=== PATIENT | male | born 1975 | race Caucasian/White ===

== ENCOUNTER 2022-09-10 14:05 | Outpatient (NON) | payer OTHER, SELFPAY ==
[2022-09-10 15:55] LABS: Crystals Synovial Fluid None Seen (None Seen)
== END 2022-09-10 14:06 | disposition home or self-care (01) ==
LOC: ANHLAB 14:07
PROVIDERS: PCP Family Medicine Sports Medicine; Visit Provider Orthopaedic Surgery
DX: M25.461 Effusion, right knee (principal)
CPT/HCPCS: 87070; 87075; 87147; 87181; 87186; 87205; 89060

== ENCOUNTER 2022-09-14 09:09 | Inpatient (IN) | payer OTHER, SELFPAY ==
[2022-09-14] VITALS (31 sets, daily range): BP systolic 120–135; BP diastolic 58–83; PULSE 80–101; RESP 16–20; TEMP 36.6–37.9; O2SAT 96–100; BMI 25.9
--- NOTE | ~2022-09-14 | XR_ITS ---
EXAMINATION: XR knee RT 3V DATE: 09/14/2022 09:53 INDICATION: Anterior right knee pain, swelling and erythema TECHNIQUE: Anteroposterior, oblique and crosstable lateral views of the right knee were obtained COMPARISON: None. FINDINGS: Alignment is normal. No fracture. Joint spaces appear normal on nonweightbearing imaging. Tiny kin nal osteophytes along the patella and medial and lateral patellar facets consistent with at least min imal osteoarthritis. No joint effusion/layering lipohemarthrosis. Marked prepatellar soft tissue swel ling with lenticular region of soft tissue density measuring approximately 19 cm craniocaudally and 3 .7 cm in maximal AP thickness located anteriorly to the patellar and distal quadriceps tendon. IMPRESSION: 1. Large prepatellar subcutaneous lenticular density suspicious for hematoma, abscess or prepatellar bursitis. 2. Minimal tricompartmental osteoarthritis. No joint effusion or acute osseous abnormalities. Reviewed, dictated and finalized at location A. IMPRESSION: 1. Large prepatellar subcutaneous lenticular density suspicious for hematoma, a bscess or prepatellar bursitis. 2. Minimal tricompartmental osteoarthritis. No joint effusion or acute osseous abnormalities.
--- NOTE | 2022-09-14 09:44 | ED.LOWEXIN ---
HPI - Extremity Injury (Lower) General Chief Complaint: Extremity Injury, Lower <Christy Hu PA-C - Last Filed: 09/14/22 17:24> Stated Complaint: R knee infection <Christy Hu PA-C - Last Filed: 09/14/22 17:24> Time Seen by Provider: 09/14/22 09:32 <Christy Hu PA-C - Last Filed: 09/14/22 17:24> History of Present Illness HPI Narrative: Patient is a 47-year-old male here for evaluation of right knee, swelling and redness over the past 3 days. Patient has been seeing Dr. Rangel for prepatellar bursitis, recently had aspiration of the bursa that was suspicious for septic bursitis. Patient was placed on Bactrim prophylactically, was told to come to the ED should he start to develop systemic signs of infection. Patient states that he developed fevers yesterday, nausea, and the swelling and redness in the knee has not improved. Last took ibuprofen last evening. He is previously healthy. Denies further complaints, no chest pain, shortness of breath, numbness or tingling in the leg. <IGNACIO Porras Last Filed: 09/14/22 17:24> Related Data Allergies/Adverse Reactions: Allergies Allergy/AdvReac Type Severity Reaction Status Date / Time No Known Allergies Allergy Verified 09/14/22 13:55 <IGNACIO Porras Last Filed: 09/14/22 17:24> Review of Systems Review of Systems: Gen: Reports fevers. Eyes: Denies eye pain or visual change ENT: Denies congestion Respiratory: Denies shortness of breath or cough CV: Denies chest pain or palpitations GI: Denies abdominal pain nausea, emesis or diarrhea : denies burning, urgency, frequency or hematuria Musculoskeletal: Reports right knee pain and swelling. Neuro: Denies numbness, tingling, weakness or focal weakness Skin: Denies rash Except as documented, all other systems reviewed and negative <IGNACIO Porras Last Filed: 09/14/22 17:24> [facility] Surgical History Surgical History: Surgical History (Updated 09/14/22 @ 12:48 by Isabel Conner PA-C) History of elbow surgery History of tooth extraction <Christy Hu PA-C - Last Filed: 09/14/22 17:24> Family History Family History: Family History (Updated 09/14/22 @ 13:50 by Fatmata Liu RN) Mother Diabetes mellitus Pacemaker Father Heart disease <Christy Hu PA-C - Last Filed: 09/14/22 17:24> Social History Social History: Social History (Updated 09/14/22 @ 12:48 by Isabel Conner PA-C) Social History: Surrogate medical decision maker: Code status: Full code. Smoking status: Never smoker Alcohol intake: current Drinks per week: 4 Substance use: never Spiritual care concerns: No Has the Lack of Transportation Kept You From Medical Appointments or From Getting Medications?: No Within the Past 12 Months, Were You Worried Whether Your Food Would Run Out Before You Got Money to Buy More?: Never True What is Your Housing Situation Today?: I Have Housing Are You Worried That in the Next 2 Months, You May Not Have Your Own Housing to Live In?: No Do You Have Trouble Paying Your Heating Or Electricity Bill?: No Do You Have Trouble Paying For Medicines?: No Are You Currently Unemployed and Looking for Work?: No Highest Level of Education Completed: Trade/Vocational Certificate Do You Have Trouble With Childcare or the Care of a Family Member?: No <Christy Hu PA-C - Last Filed: 09/14/22 17:24> Exam Narrative: APPEARANCE: Well appearing, no pain in distress, well-nourished. Head: Normocephalic and atraumatic. EYES: PERRLA/EOMI, conjunctivae clear NOSE: No nasal drainage EARS: External ear normal in appearance THROAT: Oropharynx is clear. Mucous membranes are moist. NECK: Supple. No adenopathy, no masses. RESPIRATORY: Airway patent, respirations nonlabored. Clear to auscultation bilaterally, no rales, rhonchi, wheezing. CARDIOVASCULAR
[2022-09-14] MEDS: ONDANSETRON INJ 4 MG/2 ML VIAL IV PUSH (10:17)
[2022-09-14] MEDS: SODIUM CHLORIDE 0.9% IV 1,000 ML 999 ML IV CONT (10:17)
[2022-09-14 10:28] LABS: Basophils Percent Auto 0.3 % (0.2-1.2); Eosinophils Absolute Auto 0.1 K/mm3 (0-0.3); Eosinophils Percent Auto 0.7 % (0-4.4); Hematocrit 41.1 % (42.0-52.0); Hemoglobin 13.5 g/dL (14.0-18.0); Immature Granulocyte Absolute 0.03 K/mm3 (0.00-0.031); Immature Granulocyte Percent A 0.3 % (0-0.5); Lymphocytes Absolute Auto 1.07 K/mm3 (0.9-3.2); Mean Corpuscular HGB Conc 32.8 g/dl (32-36); Mean Corpuscular Hemoglobin 29.6 pg (26-34); Mean Corpuscular Volume 90.1 fl (80-100); Mean Platelet Volume 9.8 fl (7.4-10.4); Monocytes Absolute Auto 1.3 K/mm3 (0.1-0.6); Monocytes Percent Auto 12.9 % (2.6-8.5); Neutrophils Absolute Auto 7.3 K/mm3 (1.3-6.7); Neutrophils Percent Auto 74.8 % (45.5-73.1); Platelet Count Result 303 k/mm3 (150-375); Red Blood Count 4.56 M/mm3 (4.6-6.20); Red Cell Distribution Width 13.2 % (11.5-14.5); White Blood Count 9.7 K/mm3 (4.5-10.0)
[2022-09-14 10:38] LABS: Lactic Acid Reflex 1.2 mmol/L (0.7-2.0)
[2022-09-14 10:40] LABS: Alanine Aminotransferase 19 U/L (6-50); Albumin Level 3.9 g/dL (3.5-5.1); Alkaline Phosphatase 113 U/L (38-126); Anion Gap 10 mmol/L (8-16); Aspartate Amino Transferase 21 U/L (17-59); Bilirubin,Total 0.7 mg/dL (0.2-1.3); Blood Urea Nitrogen 11 mg/dL (9-20); Calcium 8.8 mg/dL (8.4-10.2); Carbon Dioxide 27 mmol/L (22-30); Chloride 100 mmol/L (98-107); Estimated CRCL calculation 69 ml/min; Estimated Glomerular Filt Rate > 60; Glucose 94 mg/dL (65-110); Potassium 4.3 mmol/L (3.4-5.0); Sodium 137 mmol/L (137-145)
--- NOTE | 2022-09-14 12:45 | PM.IMHP ---
H&P: HPI History of Present Illness Date/Time: 09/14/22 12:45 Chief Complaint: Fever and right knee pain. Narrative: This is a previously healthy 47-year-old male presented to the emergency department for evaluation of fever and increasing pain in his right knee. 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 Over last 4 months he has had intermittent problems with right prepatellar bursitis which he has been treating at home. He had worsening symptoms with redness and swelling over the past 1 to 2 weeks and he was seen by Dr. Rangel as an outpatient on 09/05/2022. Culture done on fluid aspirated on 09/09/2022 grew out MRSA and he was started on Bactrim of which he has been compliant. Unfortunately he continues to have increasing pain, redness, and swelling and yesterday he developed a low-grade fever at which time he was told to come to the ER. The aching pain is worse with bending of the joint and weight-bearing, somewhat improved with Tylenol and ibuprofen. He is being admitted in this setting for IV antibiotics. In addition to the low-grade fever he has had nausea and one episode of emesis yesterday pain. Review of Systems Review of Systems: Twelve systems were reviewed and are negative except for as per HPI. [facility] Past Medical History Medical History (Updated 09/14/22 @ 19:01 by Isabel Conner PA-C) No significant past medical history Surgical History Surgical History (Updated 09/14/22 @ 19:02 by Isabel Conner PA-C) History of elbow surgery Repair radial head fracture. History of tooth extraction Family History Family History (Updated 09/14/22 @ 13:50 by Fatmata Liu RN) Mother Diabetes mellitus Pacemaker Father Heart disease Social History Social History (Updated 09/14/22 @ 19:02 by Isabel Conner PA-C) Social History: Surrogate medical decision maker: Benjamín Chakanell, spouse. Code status: Full code. Smoking status: Never smoker Alcohol intake: current Drinks per week: 4 Substance use: never Additional living arrangements comments: Lives in [place] with spouse and children. Spiritual care concerns: No Has the Lack of Transportation Kept You From Medical Appointments or From Getting Medications?: No Within the Past 12 Months, Were You Worried Whether Your Food Would Run Out Before You Got Money to Buy More?: Never True What is Your Housing Situation Today?: I Have Housing Are You Worried That in the Next 2 Months, You May Not Have Your Own Housing to Live In?: No Do You Have Trouble Paying Your Heating Or Electricity Bill?: No Do You Have Trouble Paying For Medicines?: No Are You Currently Unemployed and Looking for Work?: No Highest Level of Education Completed: Trade/Vocational Certificate Do You Have Trouble With Childcare or the Care of a Family Member?: No Meds Home Medications and Allergies Home Medications Medication Instructions Recorded Confirmed Type sulfamethoxazole 800 1 tablet PO Q12H #30 tabs 09/10/22 09/14/22 Rx mg-trimethoprim 160 mg tablet (Bactrim DS) Allergies Allergy/AdvReac Type Severity Reaction Status Date / Time No Known Allergies Allergy Verified 09/14/22 13:55 Vital Signs Vital Signs - 24 hr 09/14/22 09:20 09/14/22 09:32 09/14/22 09:30 Temperature 97.9 F 99.6 F Pulse Rate 101 H 87 Respiratory Rate 20 18 Blood Pressure 126/81 135/83 Pulse Oximetry 100 99 99 Oxygen Delivery Room Air Room Air 09/14/22 09:31 09/14/22 09:45 09/14/22 09:46 Temperature Pulse Rate Respiratory Rate Blood Pressure 135/83 132/80 Pulse Oximetry 97 97 97 Oxygen Delivery 09/14/22 09:55 09/14/22 10:00 09/14/22 10:01 Temperature Pulse Rate Respiratory Rate Blood Pressure 128/81 123/70 Pulse Oximetry 99 96 97 Oxygen Delivery 09/14/22 10:15 09/14/22 10:16 09/14/22 10:34 Temperature Pulse Rate Respiratory Rate Blood Pressure 120/71 Pul
[2022-09-14 12:48] LABS: Appearance Synovial Fluid Turbid (Clear); Color Synovial Fluid Red (Colorless); Source Synovial Fluid Synovial fluid
[2022-09-14 13:26] LABS: CRP 21.3 mg/dL (<1.0)
--- NOTE | 2022-09-14 13:35 | PC.NURSE ---
This patient, Efrain Turner, was admitted to 3 [facility] Surg Room 310-01. Patient/family oriented to hospital policies and general routines including ID bracelet, bed and alarms, visiting hours, pain management, procedures, bathroom and other care routines, personal items, smoking policy, room service/diet, and visiting hours.Report recieved from Efrain POWELL. Information on how to activate the Rapid Response Team has been discussed. Patient/Family are encouraged to report perceived risks to care and to ask questions if they do not understand what they are told or what they should do.
[2022-09-14 13:43] LABS: Erythrocyte Sedimentation Rate 55 mm/hr (0-20)
[2022-09-14] MEDS: ACETAMINOPHEN 325 MG TABLET 650 MG PO (19:35)
[2022-09-15 06:00] VITALS: BP 126/67; PULSE 78; RESP 18; TEMP 36.3; O2SAT 96
[2022-09-15 07:07] LABS: Hematocrit 38.4 % (42.0-52.0); Hemoglobin 12.8 g/dL (14.0-18.0); Mean Corpuscular HGB Conc 33.3 g/dl (32-36); Mean Corpuscular Volume 87.1 fl (80-100); Mean Platelet Volume 9.8 fl (7.4-10.4); Platelet Count Result 304 k/mm3 (150-375); Red Blood Count 4.41 M/mm3 (4.6-6.20); White Blood Count 10.3 K/mm3 (4.5-10.0)
[2022-09-15 07:36] LABS: Anion Gap 12 mmol/L (8-16); Blood Urea Nitrogen 9 mg/dL (9-20); Calcium 8.9 mg/dL (8.4-10.2); Carbon Dioxide 26 mmol/L (22-30); Chloride 99 mmol/L (98-107); Estimated CRCL calculation 82 ml/min; Estimated Glomerular Filt Rate > 60; Glucose 121 mg/dL (65-110); Magnesium 2.1 mg/dL (1.6-2.3); Potassium 4.3 mmol/L (3.4-5.0); Sodium 137 mmol/L (137-145)
[2022-09-15] MEDS: ACETAMINOPHEN 325 MG TABLET 650 MG PO ×2 (12:17→21:26)
[2022-09-15 14:00] VITALS: BP 131/75; PULSE 89; RESP 22; TEMP 36.9; O2SAT 94
--- NOTE | 2022-09-15 14:08 | PM.IMPN ---
Progress Note: A&P Assessment and Plan (1) Septic prepatellar bursitis of right knee: Code(s): M71.161 - Other infective bursitis, right knee Status: Acute Assessment and Plan: Culture obtained on 09/10/2022 grew out oxacillin resistant Staphylococcus aureus and he has been compliant with Bactrim though unfortunately his symptoms have gotten worse and he is now developing a fever. Started on vancomycin IV Orthopedics on board. likely needs drainage of the bursa for adequate treatment Await their recommendations Blood cultures been obtained 08/24 and has been no growth to date. Subjective Date/time seen: 09/15/22 14:08 Interval history: feels okay for still having fever on and off. Blood culture drawn yesterday pending. Ortho following. Review of Systems Review of Systems: All systems reviewed & are unremarkable except as noted in HPI and below Exam Narrative: General: Well-developed, nontoxic-appearing male sitting up in bed. HEENT: PERRL, EOMI. Sclera anicteric. Tacky mucous membranes. Neck: Supple. Respiratory: Lungs are clear to auscultation bilaterally. Cardiovascular: Regular rate and rhythm with S1-S2. Gastrointestinal: Abdomen is soft, nontender, and nondistended with positive bowel sounds. Skin: Warm and dry. Musculoskeletal: Right knee is markedly swollen, red, warm, and tender to touch. Extremities: No cyanosis, clubbing, or edema. Radial and pedal pulses intact. Neurological: Alert. Cranial nerves 2-12 are grossly intact. No gross focal deficits to casual conversation. Psychiatric: Pleasant and cooperative with normal mood and affect. Judgment and insight intact. Objective Data Vital Signs Vital Signs: Vital Signs - 24 hr 09/14/22 19:35 09/14/22 20:35 09/14/22 21:38 Temperature 100.3 F H 98.8 F 98.8 F Pulse Rate 93 Respiratory Rate 20 Blood Pressure 125/58 L Pulse Oximetry 98 Oxygen Delivery 09/14/22 20:00 09/15/22 06:00 Temperature 97.3 F L Pulse Rate 78 Respiratory Rate 18 Blood Pressure 126/67 Pulse Oximetry 96 Oxygen Delivery Room Air Intake/Output Intake/Output: Intake & Output 09/12/22 09/13/22 09/14/22 09/15/22 23:59 23:59 23:59 23:59 Intake Total 1830 490 Output Total 800 1000 Balance 1030 -510 Meds/Results Medications: Active Medications Generic Name Dose Route Start Last Admin Trade Name Sid PRN Reason Stop Dose Admin Acetaminophen 650 mg 09/14/22 19:07 09/15/22 12:17 Acetaminophen 325 Mg Tablet PO 650 mg Q6H PRN Administration Mild Pain (1-3) or Fever Hydrocodone Bitart/Acetaminophen 1 tab 09/14/22 19:07 Hydrocodone/Acetaminophen (*Crx) 5-325 Mg Tablet PO Q6H PRN Pain Rated 4-6 Vancomycin HCl 1,250 mg in 250 mls @ 200 mls/hr 09/15/22 18:00 Vancomycin 1,250 Mg/D5w 250 Ml IVPB Q12H [facility] Radiology Results: ITS Impressions Knee X-Ray 09/14/22 10:34 IMPRESSION: 1. Large prepatellar subcutaneous lenticular density suspicious for hematoma, abscess or prepatellar bursitis. 2. Minimal tricompartmental osteoarthritis. No joint effusion or acute osseous abnormalities. Labs Labs: Laboratory Results - last 24 hr 09/15/22 09/15/22 06:36 06:36 WBC 10.3 H RBC 4.41 L Hgb 12.8 L Hct 38.4 L MCV 87.1 MCH 29.0 MCHC 33.3 RDW 13.0 Plt Count 304 MPV 9.8 Sodium 137 Potassium 4.3 Chloride 99 Carbon Dioxide 26 Anion Gap 12 BUN 9 Creatinine 1.00 Estim Creat Clear Calc 82 Estimated GFR > 60 Glucose 121 H Calcium 8.9 Magnesium 2.1
--- NOTE | 2022-09-15 16:03 | PM.CNOR ---
Assessment and Plan Assessment and plan (1) Septic prepatellar bursitis of right knee: Code(s): M71.161 - Other infective bursitis, right knee Status: Acute Assessment and Plan: 47-year-old male presents with progressive swelling and pain of the right knee. Has noted anterior swelling and minimal pain over several months. Was seen by me last week with increasing pain and swelling. Treated with aspiration and injection. Symptoms progressed. He was started on Bactrim, which he did not tolerate very well. Over the ensuing days he began to have redness, swelling, and low-grade fever. He was then admitted through the emergency room. Paucity of fluid obtained from the aspiration in the emergency room. IV vancomycin started. Examination Low-grade fever. Slight limp. No distress. Significant prepatellar swelling and redness now. Swelling extends from the suprapatellar bursa to the infrapatellar area. There is warmth. Good knee motion with moderate anterior pain. No knee effusion. Distal neurovascular status intact. No edema. Diagnostics Aspirate in the outpatient clinic reveals methicillin-resistant Staph aureus. Initially obtained 5 mL of purulent fluid in the clinic last week. The emergency room obtained a smaller amount of aspirate. White count 10.3. Impression Septic prepatellar bursitis of the right knee. MRSA. Increased swelling and redness despite oral antibiotics. Now on IV Vancomycin. The tissues are quite edematous. Discussed the case with the hospitalist and Infectious Disease pharmacy stock clerk. In order to get as much source control as possible, we will proceed with open irrigation and debridement tomorrow. Risks, benefits, and alternatives discussed. History of Present Illness HPI Consult date: 09/15/22 Chief complaint: septic bursitis Narrative: teofilo [facility] Past Medical History Medical History No significant past medical history Surgical History Surgical History History of elbow surgery Repair radial head fracture. History of tooth extraction Family History Family History Mother Diabetes mellitus Pacemaker Father Heart disease Social History Social History Social History: Surrogate medical decision maker: Benjamín Turner, spouse. Code status: Full code. Smoking status: Never smoker Alcohol intake: current Drinks per week: 4 Substance use: never Additional living arrangements comments: Lives in [place] with spouse and children. Spiritual care concerns: No Has the Lack of Transportation Kept You From Medical Appointments or From Getting Medications?: No Within the Past 12 Months, Were You Worried Whether Your Food Would Run Out Before You Got Money to Buy More?: Never True What is Your Housing Situation Today?: I Have Housing Are You Worried That in the Next 2 Months, You May Not Have Your Own Housing to Live In?: No Do You Have Trouble Paying Your Heating Or Electricity Bill?: No Do You Have Trouble Paying For Medicines?: No Are You Currently Unemployed and Looking for Work?: No Highest Level of Education Completed: Trade/Vocational Certificate Do You Have Trouble With Childcare or the Care of a Family Member?: No Meds Home Medications and Allergies Home Medications Medication Instructions Recorded Confirmed Type sulfamethoxazole 800 1 tablet PO Q12H #30 tabs 09/10/22 09/14/22 Rx mg-trimethoprim 160 mg tablet (Bactrim DS) Allergies Allergy/AdvReac Type Severity Reaction Status Date / Time No Known Allergies Allergy Verified 09/14/22 13:55 Vital Signs Vital Signs - 24 hr 09/14/22 19:35 09/14/22 20:35 09/14/22 21:38 Temperature 37.9 C H 37.1 C 37.1 C Pulse Rate 93 Respi
[2022-09-15 22:00] VITALS: BP 122/71; PULSE 91; RESP 20; TEMP 36.9; O2SAT 94
[2022-09-16] VITALS (11 sets, daily range): BP systolic 108–138; BP diastolic 66–94; PULSE 77–104; RESP 10–21; TEMP 36.1–36.5; O2SAT 95–100
--- NOTE | 2022-09-16 00:49 | PC.NURSE ---
Pt continues to have pain in L knee secondary to infection and swelling. Pt has redness at the base of swelling. Pt continues to have fever. Pt is going for open I and D on 09/16/22. Pt participated and contributed to plan of care for the shift. Pt has no other complaints or needs at this time. Will continue to monitor pt.
[2022-09-16 06:46] LABS: Basophils Absolute Auto 0.1 K/mm3 (0.0-0.1); Basophils Percent Auto 0.4 % (0.2-1.2); Eosinophils Absolute Auto 0.1 K/mm3 (0-0.3); Eosinophils Percent Auto 0.8 % (0-4.4); Hematocrit 40.6 % (42.0-52.0); Hemoglobin 13.2 g/dL (14.0-18.0); Immature Granulocyte Absolute 0.07 K/mm3 (0.00-0.031); Immature Granulocyte Percent A 0.5 % (0-0.5); Lymphocytes Absolute Auto 1.32 K/mm3 (0.9-3.2); Lymphocytes Percent Auto 9.9 % (18.3-44.2); Mean Corpuscular HGB Conc 32.5 g/dl (32-36); Mean Corpuscular Hemoglobin 29.3 pg (26-34); Mean Platelet Volume 9.7 fl (7.4-10.4); Monocytes Absolute Auto 1.5 K/mm3 (0.1-0.6); Monocytes Percent Auto 11.1 % (2.6-8.5); Neutrophils Absolute Auto 10.3 K/mm3 (1.3-6.7); Neutrophils Percent Auto 77.3 % (45.5-73.1); Platelet Count Result 351 k/mm3 (150-375); Red Blood Count 4.51 M/mm3 (4.6-6.20); Red Cell Distribution Width 13.2 % (11.5-14.5); White Blood Count 13.3 K/mm3 (4.5-10.0)
[2022-09-16 06:56] LABS: Alanine Aminotransferase 18 U/L (6-50); Albumin Level 3.9 g/dL (3.5-5.1); Alkaline Phosphatase 110 U/L (38-126); Anion Gap 14 mmol/L (8-16); Aspartate Amino Transferase 18 U/L (17-59); Bilirubin,Total 0.7 mg/dL (0.2-1.3); Blood Urea Nitrogen 10 mg/dL (9-20); Calcium 9.3 mg/dL (8.4-10.2); Carbon Dioxide 25 mmol/L (22-30); Chloride 98 mmol/L (98-107); Estimated CRCL calculation 82 ml/min; Estimated Glomerular Filt Rate > 60; Glucose 104 mg/dL (65-110); Potassium 4.1 mmol/L (3.4-5.0); Sodium 137 mmol/L (137-145)
--- NOTE | 2022-09-16 07:28 | WPDHPUPDATE1 ---
History and Physical Update Update Date/Time: 09/16/22 07:28 History and Physical has been reviewed, including an updated exam of the patient. There are NO changes in the patient's condition. Risks, benefits, and alternatives have been discussed and questions answered. Patient agrees to proceed with procedure.
[2022-09-16 07:32] LABS: Vancomycin Trough 6.4 ug/mL (10.0-20.0)
--- NOTE | 2022-09-16 08:25 | WPDANESEPPF ---
Anes - Initial Pre Proc Eval Procedure: Operation Date: 09/16/22 14:00 Proposed Procedures p Open Incision and Drainage with Washout Right Knee Prepatellar Bursa - Kilo Rangel MD Date/Time: 09/16/22 08:25 Surgeon: Ian Rios MD Pre Op Diagnosis: septic bursitis Patient Data Age: 47 Gender: M Height: 1.78 m Weight: 81.9 kg Last Vital Signs Temp 36.5 C 09/16/22 06:00 Pulse 78 09/16/22 06:00 Resp 19 09/16/22 06:00 BP 129/75 09/16/22 06:00 Pulse Ox 96 09/16/22 06:00 O2 Del Method Room Air 09/15/22 21:26 Allergies Allergy/AdvReac Type Severity Reaction Status Date / Time No Known Allergies Allergy Verified 09/14/22 13:55 Home Medications Medication Instructions Recorded Confirmed Type sulfamethoxazole 800 1 tablet PO Q12H #30 tabs 09/10/22 09/14/22 Rx mg-trimethoprim 160 mg tablet (Bactrim DS) Laboratory Tests 09/16/22 09/16/22 09/16/22 06:22 06:22 06:22 WBC 13.3 K/mm3 H K/mm3 (4.5-10.0) RBC 4.51 M/mm3 L M/mm3 (4.6-6.20) Hgb 13.2 g/dL L g/dL (14.0-18.0) Hct 40.6 % L % (42.0-52.0) MCV 90.0 fl fl (80-100) MCH 29.3 pg pg (26-34) MCHC 32.5 g/dl g/dl (32-36) RDW 13.2 % % (11.5-14.5) Plt Count 351 k/mm3 k/mm3 (150-375) MPV 9.7 fl fl (7.4-10.4) Immature Gran % (Auto) 0.5 % % (0-0.5) Neut % (Auto) 77.3 % H % (45.5-73.1) Lymph % (Auto) 9.9 % L % (18.3-44.2) [place] % (Auto) 11.1 % H % (2.6-8.5) Eos % (Auto) 0.8 % % (0-4.4) Baso % (Auto) 0.4 % % (0.2-1.2) Lymph # (Auto) 1.32 K/mm3 K/mm3 (0.9-3.2) [place] # (Auto) 1.5 K/mm3 H K/mm3 (0.1-0.6) Eos # (Auto) 0.1 K/mm3 K/mm3 (0-0.3) Baso # (Auto) 0.1 K/mm3 K/mm3 (0.0-0.1) Abs Immat Gran (auto) 0.07 K/mm3 H K/mm3 (0.00-0.031) Absolute Neuts (auto) 10.3 K/mm3 H K/mm3 (1.3-6.7) Absolute Nucleated RBC 0.0 K/mm3 K/mm3 (0.0-0.012) Nucleated RBC % 0.0 % % (0.0-0.2) Sodium 137 mmol/L mmol/L (137-145) Potassium 4.1 mmol/L mmol/L (3.4-5.0) Chloride 98 mmol/L mmol/L (98-107) Carbon Dioxide 25 mmol/L mmol/L (22-30) Anion Gap 14 mmol/L mmol/L (8-16) BUN 10 mg/dL mg/dL (9-20) Creatinine 1.00 mg/dL mg/dL (0.7-1.3) Estim Creat Clear Calc 82 ml/min ml/min Estimated GFR > 60 (59 - ) Glucose 104 mg/dL mg/dL (65-110) Calcium 9.3 mg/dL mg/dL (8.4-10.2) Magnesium 2.0 mg/dL mg/dL (1.6-2.3) Total Bilirubin 0.7 mg/dL mg/dL (0.2-1.3) AST 18 U/L U/L (17-59) ALT 18 U/L U/L (6-50) Alkaline Phosphatase 110 U/L U/L (38-126) Total Protein 7.0 g/dL g/dL (6.3-8.2) Albumin 3.9 g/dL g/dL (3.5-5.1) Vancomycin Trough 6.4 ug/mL L ug/mL (10.0-20.0) Patient hx anesthesia problems: none Family hx anesthesia problems: none Results Review: All pre-operative results and documents have been reviewed as part of the pre-operative evaluation. [facility] Past Medical History Medical History No significant past medical history Surgical History Surgical History History of elbow surgery Repair radial head fracture. History of tooth extraction Family History Family History Mother Diabetes mellitus Pacemaker Father Heart disease Social History Social History Social History: Surrogate medical decision maker: Benjamín Nullnell, spouse. Code status: Full code. Smoking status: Never smoker Alcohol intake: current Drinks per week:
[2022-09-16] MEDS: HYDROcodone/acetaminophen (*CRX) 5-325 MG TABLET 1 TAB PO (09:07)
[2022-09-16] MEDS: LACTATED RINGERS 1,000 ML 30 ML IV CONT ×2 (13:00→14:52)
--- NOTE | 2022-09-16 13:41 | PM.IMPN ---
Progress Note: A&P Assessment and Plan (1) Septic prepatellar bursitis of right knee: Code(s): M71.161 - Other infective bursitis, right knee Status: Acute Assessment and Plan: Culture obtained on 09/10/2022 grew out oxacillin resistant Staphylococcus aureus and he has been compliant with Bactrim though unfortunately his symptoms have gotten worse and he is now developing a fever. Started on vancomycin IV Orthopedics on board. Plan for debridement today Blood cultures been obtained 08/24 and has been no growth to date. Once I and D performed and blood culture remains negative may be able to switch to oral antibiotics: From most culture potentially Bactrim or doxycycline Subjective Date/time seen: 09/16/22 13:41 Interval history: no overnight events. He is going for debridement today. Remains afebrile. Updated on the blood culture report. Tolerating vancomycin IV. Review of Systems Review of Systems: All systems reviewed & are unremarkable except as noted in HPI and below Exam Narrative: General: Well-developed, nontoxic-appearing male sitting up in bed. HEENT: PERRL, EOMI. Sclera anicteric. Tacky mucous membranes. Neck: Supple. Respiratory: Lungs are clear to auscultation bilaterally. Cardiovascular: Regular rate and rhythm with S1-S2. Gastrointestinal: Abdomen is soft, nontender, and nondistended with positive bowel sounds. Skin: Warm and dry. Musculoskeletal: Right knee is markedly swollen, red, warm, and tender to touch. Extremities: No cyanosis, clubbing, or edema. Radial and pedal pulses intact. Neurological: Alert. Cranial nerves 2-12 are grossly intact. No gross focal deficits to casual conversation. Psychiatric: Pleasant and cooperative with normal mood and affect. Judgment and insight intact. Objective Data Vital Signs Vital Signs: Vital Signs - 24 hr 09/15/22 14:00 09/15/22 22:00 09/15/22 21:26 Temperature 98.4 F 98.4 F Pulse Rate 89 91 Respiratory Rate 22 H 20 Blood Pressure 131/75 122/71 Pulse Oximetry 94 94 Oxygen Delivery Room Air 09/16/22 06:00 09/16/22 11:45 Temperature 97.7 F Pulse Rate 78 Respiratory Rate 19 Blood Pressure 129/75 Pulse Oximetry 96 96 Oxygen Delivery Room Air Intake/Output Intake/Output: Intake & Output 09/13/22 09/14/22 09/15/22 09/16/22 23:59 23:59 23:59 23:59 Intake Total 1830 2220 1050 Output Total 800 2200 925 Balance 1030 20 125 Meds/Results Medications: Active Medications Generic Name Dose Route Start Last Admin Trade Name Freq PRN Reason Stop Dose Admin Acetaminophen 650 mg 09/14/22 19:07 09/15/22 21:26 Acetaminophen 325 Mg Tablet PO 650 mg Q6H PRN Administration Mild Pain (1-3) or Fever Hydrocodone Bitart/Acetaminophen 1 tab 09/14/22 19:07 09/16/22 09:07 Hydrocodone/Acetaminophen (*Crx) 5-325 Mg Tablet PO 1 tab Q6H PRN Administration Pain Rated 4-6 Fentanyl Citrate 25 mcg 09/16/22 08:25 Fentanyl Citrate Inj (*Crx) 100 Mcg/2 Ml Vial IV PUSH Q2M PRN Pain Vancomycin HCl 1,500 mg in 500 mls @ 333.333 mls/hr 09/16/22 08:00 09/16/22 10:29 Vancomycin 1,500 Mg/D5w 500 Ml IVPB Infused Q12H EMILIE Infusion Lactated Ringer's 1,000 mls @ 30 mls/hr 09/16/22 08:25 09/16/22 13:00 Lr - Lactated Ringers Iv IV CONT 30 mls/hr .Q24H EMILIE Administration Lactated Ringer's 1,000 mls @ 30 mls/hr 09/16/22 08:25 Lr - Lactated Ringers Iv IV CONT .Q24H EMILIE Ondansetron HCl 4 mg 09/16/22 08:25 Ondansetron Inj 4 Mg/2 Ml Vial IV PUSH ONCE PRN Nausea Oxycodone HCl 5 mg 09/16/22 08:25 Oxycodone Hcl (*Crx) 5 Mg Tab Ir PO ONCE PRN Pain Radiology Results: ITS Impressions Knee X-Ray 09/14/22 10:34 IMPRESSION: 1. Large prepatellar subcutaneous lenticular density suspicious for hematoma, abscess or prepatellar bursitis. 2. Minimal tricompartmental osteoarthritis. No joint effusion or ac
[2022-09-16] MEDS: fentaNYL CITRATE INJ (*CRX) 100 MCG/2 ML VIAL 50 MCG IV PUSH (13:44)
[2022-09-16] MEDS: fentaNYL CITRATE INJ (*CRX) 100 MCG/2 ML VIAL 25 MCG IV PUSH ×4 (15:06→15:29)
--- NOTE | 2022-09-16 15:11 | W.PM.PROC2 ---
Procedure Note - Detailed Date of Procedure 09/16/22 Pre-op Diagnosis Septic prepatellar bursitis of right knee. Post-op Diagnosis Same Procedure Performed Open irrigation and debridement right knee septic prepatellar bursitis. Surgeon Kilo Rangel MD Anesthesia General Indications Increasing swelling not responsive to aspiration and IV antibiotics. Two prior cultures positive for MRSA. Findings Large prepatellar collection of purulent fluid. Description of Procedure The patient was given a general anesthetic. The knee was prepped and draped in the usual sterile fashion. An incision over the anterior knee was marked and taken. A small ellipse of tissue over the most stretched portion of the skin was created. Gross purulence was evacuated. The tissues appeared fairly viable. Some of the redundant bursa tissue was excised. This was performed with a rongeur and curette. 6 L of normal saline irrigation was put through the wound. The tissues appeared healthy bleeding and much inflamed at the conclusion of the procedure. Although there was appropriate bleeding during the procedure, it slowed down very nicely by the conclusion. The skin closed without undue tension. Interrupted monofilament suture was used. 0 PDS followed by 3-0 Monocryl deep. Then 2-0 nylon horizontal mattress in the skin. The wound was closed without undue tension to allow for the possibility of some drainage. Suture material was minimized. Xeroform gauze with sterile bulky dressing was applied. Knee immobilizer was placed. Patient extubated and brought to recovery room in stable condition. Estimated blood loss 50 mL. Estimated Blood Loss -50.0 Urine Output 925 Drains No Packing No Pathology None sent Complications No immediate complications Condition Stable Disposition PACU [facility] Billing Surgery - Charge Forward: Surgery Billing
[2022-09-16] MEDS: HYDROcodone/acetaminophen (*CRX) 7.5-325 MG TABLET 1 TAB PO ×2 (15:58→20:59)
[2022-09-16] MEDS: ASPIRIN 325 MG ENTERIC TABLET PO (20:48)
[2022-09-17 01:24] VITALS: BP 115/70; PULSE 71; RESP 20; TEMP 36.2; O2SAT 97
[2022-09-17 05:24] VITALS: BP 125/71; PULSE 84; RESP 19; TEMP 35.9; O2SAT 97
[2022-09-17 07:08] LABS: Basophils Absolute Auto 0.1 K/mm3 (0.0-0.1); Basophils Percent Auto 0.5 % (0.2-1.2); Eosinophils Absolute Auto 0.3 K/mm3 (0-0.3); Eosinophils Percent Auto 2.9 % (0-4.4); Hematocrit 33.1 % (42.0-52.0); Hemoglobin 10.8 g/dL (14.0-18.0); Immature Granulocyte Absolute 0.14 K/mm3 (0.00-0.031); Immature Granulocyte Percent A 1.2 % (0-0.5); Lymphocytes Percent Auto 13.8 % (18.3-44.2); Mean Corpuscular HGB Conc 32.6 g/dl (32-36); Mean Platelet Volume 9.7 fl (7.4-10.4); Monocytes Absolute Auto 1.2 K/mm3 (0.1-0.6); Monocytes Percent Auto 10.1 % (2.6-8.5); Neutrophils Absolute Auto 8.3 K/mm3 (1.3-6.7); Neutrophils Percent Auto 71.5 % (45.5-73.1); Platelet Count Result 348 k/mm3 (150-375); Red Blood Count 3.72 M/mm3 (4.6-6.20); White Blood Count 11.6 K/mm3 (4.5-10.0)
[2022-09-17 07:18] LABS: Alanine Aminotransferase 14 U/L (6-50); Albumin Level 3.2 g/dL (3.5-5.1); Alkaline Phosphatase 90 U/L (38-126); Anion Gap 11 mmol/L (8-16); Aspartate Amino Transferase 15 U/L (17-59); Bilirubin,Total 0.5 mg/dL (0.2-1.3); Blood Urea Nitrogen 10 mg/dL (9-20); Calcium 8.5 mg/dL (8.4-10.2); Carbon Dioxide 30 mmol/L (22-30); Chloride 96 mmol/L (98-107); Estimated CRCL calculation 91 ml/min; Estimated Glomerular Filt Rate > 60; Glucose 102 mg/dL (65-110); Potassium 4.3 mmol/L (3.4-5.0); Sodium 137 mmol/L (137-145)
--- NOTE | 2022-09-17 07:50 | WPDANESPN ---
Anes - Prog Note Post-Op Date/Time: 09/17/22 07:50 Vital Signs: Last Vital Signs Temp 35.9 C L 09/17/22 05:24 Pulse 84 09/17/22 05:24 Resp 19 09/17/22 05:24 BP 125/71 09/17/22 05:24 Pulse Ox 97 09/17/22 05:24 O2 Del Method Room Air 09/16/22 20:46 O2 Flow Rate 6 09/16/22 15:05 Pain Score (VAS): 0 I/O: Intake & Output 09/16/22 09/16/22 09/17/22 15:59 23:59 07:59 Intake Total 900 1240 550 Output Total 925 825 Balance -25 1240 -275 Laboratory Tests 09/17/22 06:29 09/17/22 06:29 09/17/22 09/17/22 06:29 06:29 WBC 11.6 H RBC 3.72 L Hgb 10.8 L Hct 33.1 L MCV 89.0 MCH 29.0 MCHC 32.6 RDW 13.0 Plt Count 348 MPV 9.7 Immature Gran % (Auto) 1.2 H Neut % (Auto) 71.5 Lymph % (Auto) 13.8 L [place] % (Auto) 10.1 H Eos % (Auto) 2.9 Baso % (Auto) 0.5 Lymph # (Auto) 1.60 [place] # (Auto) 1.2 H Eos # (Auto) 0.3 Baso # (Auto) 0.1 Abs Immat Gran (auto) 0.14 H Absolute Neuts (auto) 8.3 H Absolute Nucleated RBC 0.0 Nucleated RBC % 0.0 Sodium 137 Potassium 4.3 Chloride 96 L Carbon Dioxide 30 Anion Gap 11 BUN 10 Creatinine 0.90 Estim Creat Clear Calc 91 Estimated GFR > 60 Glucose 102 Calcium 8.5 Magnesium 2.0 Total Bilirubin 0.5 AST 15 L ALT 14 Alkaline Phosphatase 90 Total Protein 6.0 L Albumin 3.2 L Microbiology 09/14/22 11:53 Synovial Fluid Right Knee Anaerobic Culture - Preliminary 09/14/22 11:53 Synovial Fluid Right Knee Aerobic Culture - Preliminary Staphylococcus aureus Patient Feedback: Patient satisfied with anesthetic care.
[2022-09-17] MEDS: ASPIRIN 325 MG ENTERIC TABLET PO ×2 (08:22→20:41)
[2022-09-17 09:24] VITALS: BP 119/81; PULSE 86; RESP 18; TEMP 35.8; O2SAT 97
--- NOTE | 2022-09-17 11:06 | PM.IMPN ---
Progress Note: A&P Assessment and Plan (1) Septic prepatellar bursitis of right knee: Code(s): M71.161 - Other infective bursitis, right knee Status: Acute Assessment and Plan: postop day 1 from right knee debridement and washout, continue vancomycin, cultures pending Culture obtained on 09/10/2022 grew out oxacillin resistant Staphylococcus aureus and he was compliant with Bactrim though unfortunately his symptoms got worse and he developed a fever, therefore he was admitted and started on IV vancomycin blood cultures NGTD somewhat hypothermic with temperature of 96.5-97.5 degrees F, of uncertain clinical significance, likely secondary to acute illness and recent surgery, monitor Plan DVT prophylaxis with SCDs GI prophylaxis not indicated Code status full code Subjective Date/time seen: 09/17/22 11:06 Interval history: No overnight events noted. No chest pain or shortness of breath. No nausea, vomiting or diarrhea. No fevers or chills. Pain controlled. Eager to go home. Able to ambulate with brace. Review of Systems Review of Systems: 12 point review of systems was assessed and was negative except as noted in the HPI Exam Narrative: General: No acute distress, alert and oriented per baseline HEENT: Atraumatic, normocephalic, mucous membranes moist CV: Regular rate and rhythm, S1, S2 Lungs: Clear to auscultation bilaterally, no rales or crackles noted, no wheezes, good air entry Abdomen: Soft, nontender, nondistended Extremities: Normal to inspection, right knee dressing clean/dry/intact, in an Robert wrap bandage as well as brace Skin: No rashes noted, no lesions or wounds seen Psych: Euthymic, normal affect Objective Data Vital Signs Vital Signs: Vital Signs - 24 hr 09/16/22 11:45 09/16/22 14:52 09/16/22 15:05 Temperature 97.4 F L Pulse Rate 104 H 92 Respiratory Rate 10 L 16 Blood Pressure 124/75 112/70 Pulse Oximetry 96 100 100 Oxygen Delivery Room Air Simple Face Mask Simple Face Mask Oxygen Flow Rate 6 6 09/16/22 15:20 09/16/22 15:35 09/16/22 15:39 Temperature 96.9 F L Pulse Rate 90 94 88 Respiratory Rate 16 16 16 Blood Pressure 123/75 115/66 120/72 Pulse Oximetry 100 96 96 Oxygen Delivery Room Air Room Air Oxygen Flow Rate 09/16/22 15:54 09/16/22 16:24 09/16/22 17:24 Temperature 97.1 F L 97.1 F L 97.3 F L Pulse Rate 79 90 77 Respiratory Rate 18 18 16 Blood Pressure 125/76 138/81 126/94 H Pulse Oximetry 96 95 98 Oxygen Delivery Oxygen Flow Rate 09/16/22 21:24 09/16/22 20:46 09/17/22 01:24 Temperature 97 F L 97.1 F L Pulse Rate 88 71 Respiratory Rate 21 H 20 Blood Pressure 108/66 115/70 Pulse Oximetry 96 97 Oxygen Delivery Room Air Oxygen Flow Rate 09/17/22 05:24 09/17/22 09:24 Temperature 96.7 F L 96.5 F L Pulse Rate 84 86 Respiratory Rate 19 18 Blood Pressure 125/71 119/81 Pulse Oximetry 97 97 Oxygen Delivery Oxygen Flow Rate Intake/Output Intake/Output: Intake & Output 09/14/22 09/15/22 09/16/22 09/17/22 23:59 23:59 23:59 23:59 Intake Total 1830 2220 2690 1410 Output Total 800 2200 1850 825 Balance 1030 20 840 585 Meds/Results Medications: Active Medications Generic Name Dose Route Start Last Admin Trade Name Sid PRN Reason Stop Dose Admin Acetaminophen 650 mg 09/14/22 19:07 09/15/22 21:26 Acetaminophen 325 Mg Tablet PO 650 mg Q6H PRN Administration Mild Pain (1-3) or Fever Hydrocodone Bitart/Acetaminophen 1 tab 09/16/22 15:39 09/16/22 20:59 Hydrocodone/Acetaminophen (*Crx) 7.5-325 Mg Tablet PO 1 tab Q3H PRN Administration Pain Rated 4-6 Hydrocodone Bitart/Acetaminophen 2 tab 09/16/22 15:39 Hydrocodone/Acetaminophen (*Crx) 5-325 Mg Tablet PO Q6H PRN Pain Rated 7-10 Aspirin 325 mg 09/16/22 21:00 09/17/22 08:22 Aspirin 325 Mg Enteric Tablet PO 325 mg Q12HR EMILIE Administration Vancomycin HCl 1,500 mg in 500 mls @ 333.33
[2022-09-17 12:05] VITALS: BP 124/74; PULSE 87; RESP 18; TEMP 35.8; O2SAT 98
--- NOTE | 2022-09-17 16:09 | PM.PNORT ---
Progress Note: A&P Assessment and Plan (1) Septic prepatellar bursitis of right knee: Code(s): M71.161 - Other infective bursitis, right knee <TAHIR Augustin - Last Filed: 09/17/22 16:16> Status: Acute <TAHIR Augustin - Last Filed: 09/17/22 16:16> Assessment and Plan: POD #1 Open irrigation and debridement right knee septic prepatellar bursitis. Patient feeling significantly better today. States he has not had a fever since the wash out. Pain is controlled today. Drainage from wound as expected. He is still on IV Vanc. Will discuss with infectious disease pharmacist tomorrow regarding switching to oral antibiotics. Likely Bactrim or Doxy. Blood cultures remain negative for growth. <TAHIR Augustin - Last Filed: 09/17/22 16:16> Assessment and Plan: Patient seen and examined. Discussed above care plan. Agree with care plan. <Kilo Rangel MD - Last Filed: 09/17/22 16:18> Subjective Subjective Date/Time Seen: 09/17/22 16:09 <TAHIR Augustin - Last Filed: 09/17/22 16:16> Interval history: Patient feeling significantly better today. No fever today. Mild pain. Very pleased overall. <TAHIR Augustin - Last Filed: 09/17/22 16:16> Review of Systems Review of Systems: All systems reviewed & are unremarkable except as noted in HPI and below <TAHIR Augustin - Last Filed: 09/17/22 16:16> Exam Narrative: 47 y/o male. Resting comfortably in bed. Dressing changed today. Some purulent/bloody drainage from wound as expected. Wearing knee immobilizer. No distress.? Decreased swelling today. ? Minimal warmth.?No erythema. No knee effusion.? Distal neurovascular status intact.? No edema. <TAHIR Augustin - Last Filed: 09/17/22 16:16> Objective Data Vital Signs Vital Signs: Vital Signs - 24 hr 09/16/22 16:24 09/16/22 17:24 09/16/22 21:24 Temperature 97.1 F L 97.3 F L 97 F L Pulse Rate 90 77 88 Respiratory Rate 18 16 21 H Blood Pressure 138/81 126/94 H 108/66 Pulse Oximetry 95 98 96 Oxygen Delivery 09/16/22 20:46 09/17/22 01:24 09/17/22 05:24 Temperature 97.1 F L 96.7 F L Pulse Rate 71 84 Respiratory Rate 20 19 Blood Pressure 115/70 125/71 Pulse Oximetry 97 97 Oxygen Delivery Room Air 09/17/22 09:24 09/17/22 12:05 Temperature 96.5 F L 96.5 F L Pulse Rate 86 87 Respiratory Rate 18 18 Blood Pressure 119/81 124/74 Pulse Oximetry 97 98 Oxygen Delivery <TAHIR Augustin - Last Filed: 09/17/22 16:16> Intake/Output Intake/Output: Intake & Output 09/14/22 09/15/22 09/16/22 09/17/22 23:59 23:59 23:59 23:59 Intake Total 1830 2220 2690 1410 Output Total 800 2200 1850 825 Balance 1030 20 840 585 <TAHIR Augustin - Last Filed: 09/17/22 16:16> Meds/Results Medications: Active Medications Generic Name Dose Route Start Last Admin Trade Name Freq PRN Reason Stop Dose Admin Acetaminophen 650 mg 09/14/22 19:07 09/15/22 21:26 Acetaminophen 325 Mg Tablet PO 650 mg Q6H PRN Administration Mild Pain (1-3) or Fever Hydrocodone Bitart/Acetaminophen 1 tab 09/16/22 15:39 09/16/22 20:59 Hydrocodone/Acetaminophen (*Crx) 7.5-325 Mg Tablet PO 1 tab Q3H PRN Administration Pain Rated 4-6 Hydrocodone Bitart/Acetaminophen 2 tab 09/16/22 15:39 Hydrocodone/Acetaminophen (*Crx) 5-325 Mg Tablet PO Q6H PRN Pain Rated 7-10 Aspirin 325 mg 09/16/22 21:00 09/17/22 08:22 Aspirin 325 Mg Enteric Tablet PO 325 mg Q12HR EMILIE Administration Vancomycin HCl 1,500 mg in 500 mls @ 333.333 mls/hr 09/16/22 08:00 09/17/22 09:53 Vancomycin 1,500 Mg/D5w 500 Ml IVPB Infused Q12H EMILIE Infusion <TAHIR Augustin - Last Filed: 09/17/22 16:16> Radiology Results: ITS Impressions Knee X-Ray 09/14/22 10:34 IMPRESSION: 1. Large prepatellar subcutaneous lenticular density suspicious for hematoma, abscess or
[2022-09-17] MEDS: ACETAMINOPHEN 325 MG TABLET 650 MG PO (18:21)
[2022-09-17 20:02] LABS: Vancomycin Trough 9.8 ug/mL (10.0-20.0)
[2022-09-17 22:15] VITALS: BP 123/63; PULSE 77; RESP 17; TEMP 36.1; O2SAT 97
--- NOTE | 2022-09-17 23:48 | PC.NURSE ---
Pt resting in bed. Pt able to ambulate around room. Pt ambulated the halls earlier today. Pt has no complaints of pain and verbalizes no needs at this time. Pt lost IV access, provider notified. Provider said it is ok to leave out. Pt possibly discharging in the morning and supposed to switch to PO meds. Pt participated and contributed to plan of care. Will continue to monitor.
[2022-09-18 06:35] LABS: Basophils Absolute Auto 0.1 K/mm3 (0.0-0.1); Basophils Percent Auto 0.8 % (0.2-1.2); Eosinophils Absolute Auto 0.6 K/mm3 (0-0.3); Eosinophils Percent Auto 5.3 % (0-4.4); Hematocrit 34.9 % (42.0-52.0); Hemoglobin 11.1 g/dL (14.0-18.0); Immature Granulocyte Absolute 0.09 K/mm3 (0.00-0.031); Immature Granulocyte Percent A 0.9 % (0-0.5); Lymphocytes Absolute Auto 1.31 K/mm3 (0.9-3.2); Lymphocytes Percent Auto 12.5 % (18.3-44.2); Mean Corpuscular HGB Conc 31.8 g/dl (32-36); Mean Corpuscular Hemoglobin 29.3 pg (26-34); Mean Corpuscular Volume 92.1 fl (80-100); Mean Platelet Volume 9.8 fl (7.4-10.4); Monocytes Percent Auto 9.1 % (2.6-8.5); Neutrophils Absolute Auto 7.5 K/mm3 (1.3-6.7); Neutrophils Percent Auto 71.4 % (45.5-73.1); Platelet Count Result 415 k/mm3 (150-375); Red Blood Count 3.79 M/mm3 (4.6-6.20); White Blood Count 10.5 K/mm3 (4.5-10.0)
[2022-09-18 06:43] LABS: Alanine Aminotransferase 16 U/L (6-50); Albumin Level 3.6 g/dL (3.5-5.1); Alkaline Phosphatase 99 U/L (38-126); Anion Gap 14 mmol/L (8-16); Aspartate Amino Transferase 18 U/L (17-59); Bilirubin,Total 0.2 mg/dL (0.2-1.3); Blood Urea Nitrogen 10 mg/dL (9-20); Calcium 8.8 mg/dL (8.4-10.2); Carbon Dioxide 27 mmol/L (22-30); Chloride 99 mmol/L (98-107); Estimated CRCL calculation 91 ml/min; Estimated Glomerular Filt Rate > 60; Glucose 94 mg/dL (65-110); Potassium 3.9 mmol/L (3.4-5.0); Sodium 140 mmol/L (137-145)
[2022-09-18 07:00] VITALS: BP 110/61; PULSE 79; RESP 18; TEMP 36.2; O2SAT 96
[2022-09-18] MEDS: ASPIRIN 325 MG ENTERIC TABLET PO (09:11)
--- NOTE | 2022-09-18 10:39 | PM.IMPN ---
Progress Note: A&P Assessment and Plan (1) Septic prepatellar bursitis of right knee: Code(s): M71.161 - Other infective bursitis, right knee Status: Acute Assessment and Plan: postop day 2 from right knee debridement and washout, continue vancomycin, cultures pending Culture obtained on 09/10/2022 grew out oxacillin resistant Staphylococcus aureus and he was compliant with Bactrim though unfortunately his symptoms got worse and he developed a fever, therefore he was admitted and started on IV vancomycin 09/14 blood cultures NGTD somewhat hypothermic with temperature of 96.5-97.5 degrees F, of uncertain clinical significance, likely secondary to acute illness and recent surgery, monitor Plan DVT prophylaxis with SCDs GI prophylaxis not indicated Code status full code Subjective Date/time seen: 09/18/22 10:39 Interval history: Patient feeling significantly better today. No fever today. Mild pain. Very pleased overall. Review of Systems Review of Systems: All systems reviewed & are unremarkable except as noted in HPI and below Exam Narrative: General: No acute distress, alert and oriented per baseline HEENT: Atraumatic, normocephalic, mucous membranes moist CV: Regular rate and rhythm, S1, S2 Lungs: Clear to auscultation bilaterally, no rales or crackles noted, no wheezes, good air entry Abdomen: Soft, nontender, nondistended Extremities: Normal to inspection, right knee dressing clean/dry/intact, in an Robert wrap bandage as well as brace Skin: No rashes noted, no lesions or wounds seen Psych: Euthymic, normal affect Objective Data Vital Signs Vital Signs: Vital Signs - 24 hr 09/17/22 12:05 09/17/22 20:38 09/17/22 22:15 Temperature 96.5 F L 96.9 F L Pulse Rate 87 77 Respiratory Rate 18 17 Blood Pressure 124/74 123/63 Pulse Oximetry 98 97 Oxygen Delivery Room Air 09/18/22 07:00 09/18/22 08:00 Temperature 97.1 F L Pulse Rate 79 Respiratory Rate 18 Blood Pressure 110/61 Pulse Oximetry 96 Oxygen Delivery Room Air Intake/Output Intake/Output: Intake & Output 09/15/22 09/16/22 09/17/22 09/18/22 23:59 23:59 23:59 23:59 Intake Total 2220 2690 2560 790 Output Total 2200 1850 2925 172 Balance 20 762 -391 -180 Meds/Results Medications: Active Medications Generic Name Dose Route Start Last Admin Trade Name Sid PRN Reason Stop Dose Admin Acetaminophen 650 mg 09/14/22 19:07 09/17/22 18:21 Acetaminophen 325 Mg Tablet PO 650 mg Q6H PRN Administration Mild Pain (1-3) or Fever Hydrocodone Bitart/Acetaminophen 1 tab 09/16/22 15:39 09/16/22 20:59 Hydrocodone/Acetaminophen (*Crx) 7.5-325 Mg Tablet PO 1 tab Q3H PRN Administration Pain Rated 4-6 Hydrocodone Bitart/Acetaminophen 2 tab 09/16/22 15:39 Hydrocodone/Acetaminophen (*Crx) 5-325 Mg Tablet PO Q6H PRN Pain Rated 7-10 Aspirin 325 mg 09/16/22 21:00 09/18/22 09:11 Aspirin 325 Mg Enteric Tablet PO 325 mg Q12HR EMILIE Administration Vancomycin HCl 2,000 mg in 500 mls @ 250 mls/hr 09/17/22 21:00 09/17/22 22:38 Vancomycin 2,000 Mg/D5w 500 Ml IVPB Infused Q12H EMILIE Infusion Radiology Results: ITS Impressions Knee X-Ray 09/14/22 10:34 IMPRESSION: 1. Large prepatellar subcutaneous lenticular density suspicious for hematoma, abscess or prepatellar bursitis. 2. Minimal tricompartmental osteoarthritis. No joint effusion or acute osseous abnormalities. Labs Labs: Laboratory Results - last 24 hr 09/17/22 09/18/22 09/18/22 18:43 06:08 06:08 WBC 10.5 H RBC 3.79 L Hgb 11.1 L Hct 34.9 L MCV 92.1 MCH 29.3 MCHC 31.8 L RDW 13.0 Plt Count 415 H MPV 9.8 Immature Gran % (Auto) 0.9 H Neut % (Auto) 71.4 Lymph % (Auto) 12.5 L [place] % (Auto) 9.1 H Eos % (Auto) 5.3 H Baso % (Auto) 0.8 Lymph # (Auto) 1.31 [place] # (Auto) 1.0 H Eos # (Auto) 0.6 H Baso # (Auto) 0.1 Abs Imm
--- NOTE | 2022-09-18 11:10 | PM.DS ---
DS: Admitting Diagnosis Discharge Date September 18, 2022 about right Admitting Diagnosis Knee pain DS: Discharge Diagnosis Discharge Diagnosis (1) Septic prepatellar bursitis of right knee: Code(s): M71.161 - Other infective bursitis, right knee Status: Acute Assessment and Plan: postop day 2 from right knee debridement and washout, on IV vancomycin after failing outpatient po bactrim for 5 days repeat effusion culture from debridement not sent Cultures from right knee effusion 09/14 showed turcios sensitive staph aureus culture obtained on 09/10/2022 grew out MRSA/oxacillin resistant Staphylococcus aureus, sensitive to bactrim, and he was compliant with Bactrim from 09/10-, his symptoms got worse and he developed a fever, therefore he was admitted and started on IV vancomycin 09/14- blood cultures NGTD somewhat hypothermic with temperature of 96.5-97.5 degrees F, of uncertain clinical significance, likely secondary to acute illness and recent surgery, stable, asymptomatic plan to d/c patient on highly bioavailable oral antibiotic doxycycline 100 mg po BID today for 2-3 more weeks, avoid chelators (vitamins/supplements/milk/tums-antacids) for 2-3 hours around administration Plan DVT prophylaxis with SCDs GI prophylaxis not indicated Code status full code DS: Summary Hospital Course Hospital Course: 47-year-old male presented to the emergency department for evaluation of fever and increasing pain in his right knee. 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 Over last 4 months he has had intermittent problems with right prepatellar bursitis which he has been treating at home. He had worsening symptoms with redness and swelling over the past 1 to 2 weeks and he was seen by Dr. Rangel as an outpatient on 09/05/2022. Culture done on fluid aspirated on 09/09/2022 grew out MRSA and he was started on Bactrim of which he has been compliant. Unfortunately he continues to have increasing pain, redness, and swelling and yesterday he developed a low-grade fever at which time he was told to come to the ER. The aching pain is worse with bending of the joint and weight-bearing, somewhat improved with Tylenol and ibuprofen. He is being admitted in this setting for IV antibiotics. In addition to the low-grade fever he has had nausea and one episode of emesis yesterday pain. Patient was placed on vancomycin. Orthopedic surgery was consulted and recommended irrigation and debridement. This was performed without complication. Cultures grew out MRSA. Blood cultures were negative. Patient's symptoms significantly improved status post debridement. Antibiotics de-escalated to oral doxycycline at discharge. Time Spent with Patient Time attestation: Total time spent providing and/or coordinating discharge services: DS: Data Data Completed and Pending Labs on day of discharge: Labs from last 24 hours 09/18/22 09/18/22 09/17/22 06:08 06:08 18:43 WBC 10.5 H RBC 3.79 L Hgb 11.1 L Hct 34.9 L MCV 92.1 MCH 29.3 MCHC 31.8 L RDW 13.0 Plt Count 415 H MPV 9.8 Immature Gran % (Auto) 0.9 H Neut % (Auto) 71.4 Lymph % (Auto) 12.5 L [place] % (Auto) 9.1 H Eos % (Auto) 5.3 H Baso % (Auto) 0.8 Lymph # (Auto) 1.31 [place] # (Auto) 1.0 H Eos # (Auto) 0.6 H Baso # (Auto) 0.1 Abs Immat Gran (auto) 0.09 H Absolute Neuts (auto) 7.5 H Absolute Nucleated RBC 0.0 Nucleated RBC % 0.0 Sodium 140 Potassium 3.9 Chloride 99 Carbon Dioxide 27 Anion Gap 14 BUN 10 Creatinine 0.90 Estim Creat Clear Calc 91 Estimated GFR > 60 Glucose 94 Calcium 8.8 Total Bilirubin 0.2 AST 18 ALT 16 Alkaline Phosphatase 99 Total Protein 7.0 Albumin 3.6 Vancomycin Trough 9.8 L Preliminary micro results at discharge 09/14/22 11:53 Anaerobic Culture - Preliminary Synovial Fluid Right Knee Aerobic Culture - Prelim
--- NOTE | 2022-09-18 11:50 | PM.PNORT ---
Progress Note: A&P Assessment and Plan (1) Septic prepatellar bursitis of right knee: Code(s): M71.161 - Other infective bursitis, right knee Status: Acute Assessment and Plan: POD #2 Open irrigation and debridement right knee septic prepatellar bursitis. Patient continues to feel good today. No fever since the wash out. Pain is controlled today. Has had approximately 5 days of IV Vanc. Discussed treatment with infectious disease pharmacist. Patient did not tolerate oral Bactrim. Patient will be discharged today on Doxycycline 100 mg BID for 3 weeks. Blood cultures remain negative for growth. We will see the patient in the office in 2 weeks. I recommend he continue knee immobilizer when up. May take it off for comfort. Tylenol and NSAIDs for pain. Subjective Subjective Date/Time Seen: 09/18/22 11:50 Interval history: Patient continues to feel much better today. No fever. Mild controlled pain. Review of Systems Review of Systems: All systems reviewed & are unremarkable except as noted in HPI and below Exam Narrative: 47 y/o male. Resting comfortably in bed. Dressing changed today. No purulent/bloody drainage from wound today. Wearing knee immobilizer. No distress.? Decreased swelling today. ? Minimal warmth.?No erythema. No knee effusion.? Distal neurovascular status intact.? No edema. Objective Data Vital Signs Vital Signs: Vital Signs - 24 hr 09/17/22 12:05 09/17/22 20:38 09/17/22 22:15 Temperature 96.5 F L 96.9 F L Pulse Rate 87 77 Respiratory Rate 18 17 Blood Pressure 124/74 123/63 Pulse Oximetry 98 97 Oxygen Delivery Room Air 09/18/22 07:00 09/18/22 08:00 Temperature 97.1 F L Pulse Rate 79 Respiratory Rate 18 Blood Pressure 110/61 Pulse Oximetry 96 Oxygen Delivery Room Air Intake/Output Intake/Output: Intake & Output 09/15/22 09/16/22 09/17/22 09/18/22 23:59 23:59 23:59 23:59 Intake Total 2220 2690 2560 790 Output Total 2200 1850 2929 1725 Balance 20 927 -180 -513 Meds/Results Medications: Active Medications Generic Name Dose Route Start Last Admin Trade Name Freq PRN Reason Stop Dose Admin Acetaminophen 650 mg 09/14/22 19:07 09/17/22 18:21 Acetaminophen 325 Mg Tablet PO 650 mg Q6H PRN Administration Mild Pain (1-3) or Fever Hydrocodone Bitart/Acetaminophen 1 tab 09/16/22 15:39 09/16/22 20:59 Hydrocodone/Acetaminophen (*Crx) 7.5-325 Mg Tablet PO 1 tab Q3H PRN Administration Pain Rated 4-6 Hydrocodone Bitart/Acetaminophen 2 tab 09/16/22 15:39 Hydrocodone/Acetaminophen (*Crx) 5-325 Mg Tablet PO Q6H PRN Pain Rated 7-10 Aspirin 325 mg 09/16/22 21:00 09/18/22 09:11 Aspirin 325 Mg Enteric Tablet PO 325 mg Q12HR EMILIE Administration Vancomycin HCl 2,000 mg in 500 mls @ 250 mls/hr 09/17/22 21:00 09/17/22 22:38 Vancomycin 2,000 Mg/D5w 500 Ml IVPB Infused Q12H EMILIE Infusion Radiology Results: ITS Impressions Knee X-Ray 09/14/22 10:34 IMPRESSION: 1. Large prepatellar subcutaneous lenticular density suspicious for hematoma, abscess or prepatellar bursitis. 2. Minimal tricompartmental osteoarthritis. No joint effusion or acute osseous abnormalities. Labs Labs: Laboratory Results - last 24 hr 09/17/22 09/18/22 09/18/22 18:43 06:08 06:08 WBC 10.5 H RBC 3.79 L Hgb 11.1 L Hct 34.9 L MCV 92.1 MCH 29.3 MCHC 31.8 L RDW 13.0 Plt Count 415 H MPV 9.8 Immature Gran % (Auto) 0.9 H Neut % (Auto) 71.4 Lymph % (Auto) 12.5 L [place] % (Auto) 9.1 H Eos % (Auto) 5.3 H Baso % (Auto) 0.8 Lymph # (Auto) 1.31 [place] # (Auto) 1.0 H Eos # (Auto) 0.6 H Baso # (Auto) 0.1 Abs Immat Gran (auto) 0.09 H Absolute Neuts (auto) 7.5 H Absolute Nucleated RBC 0.0 Nucleated RBC % 0.0 Sodium 140 Potassium 3.9 Chloride 99 Carbon Dioxide 27 Anion Gap 14 BUN 10 Creatinine 0.90 Estim Creat Clear Calc
[2022-09-18 13:46] VITALS: BP 139/65; PULSE 75; RESP 18; TEMP 36.1; O2SAT 99
== END 2022-09-18 17:17 | disposition home or self-care (01) | DRG 501 ==
LOC: ANHED 09:56 → ANH3MEDSUR 12:58
PROVIDERS: Internal Medicine; Orthopaedic Surgery; Physician Assistant; Admitting Provider Chiropractor; Emergency Provider Emergency Medicine; PCP Family Medicine Sports Medicine; Visit Provider Student in an Organized Health Care Education/Training Program
PROC: 0MBN0ZZ Excision of Right Knee Bursa and Ligament, Open Approach (ICD-10-PCS; principal; 2022-09-16 14:00)
DX: M71.161 Other infective bursitis, right knee (principal); Z16.29 Resistance to other single specified antibiotic; B95.61 Methicillin susceptible Staphylococcus aureus infection as the cause of diseases classified elsewhere; R68.0 Hypothermia, not associated with low environmental temperature
CPT/HCPCS: 20610; 36415; 73562; 80048; 80053; 80202; 83605; 83735; 85025; 85027; 85652; 86140; 87040; 87070; 87075; 87147; 87181; 87186; 87205; 89051; 96361; 96365; 96366; 96374; 96375; 99285; A9270; G0378; J0131; J2250; J2405; J2704; J3010; J3370; J7030; J7120